=== PATIENT | female | born 1935 | race African-American/Black ===

== ENCOUNTER 2016-10-27 11:49 | Day surgery (SDC) | payer OTHER ==
[2016-10-27 13:56] VITALS: PULSE 76
[2016-10-27 14:08] VITALS: BP 149/83; TEMP 98.2
--- NOTE | 2016-10-29 11:15 | PATH ---
Surgical Pathology Report Patient Name: IZABEL JIMENEZ [facility]. Rec. #: [id number] /Age/Gender: 1935 (Age: 81) / F Account: [id number] Location: [facility]-ENDOSCOPY Taken: 10/27/2016 Received: 10/27/2016 Reported: 10/29/2016 Physicians: Josie Fleming M.D. Specimen(s) Received A: BX DUODENAL BULB B: BX GE JUNCTION Clinical History Dysphagia Inflammation Final Diagnosis A. DUODENUM, BULB, BIOPSY: SMALL INTESTINAL MUCOSA WITH EXTRAVASATION OF RED BLOOD CELLS WITHIN LAMINA PROPRIA. NO INFLAMMATORY INFILTRATES IDENTIFIED. NO HISTOLOGIC EVIDENCE OF GLUTEN SENSITIVE ENTEROPATHY (CELIAC SPRUE) IDENTIFIED. B. GE JUNCTION, BIOPSY: GASTRIC TYPE MUCOSA WITH CHRONIC INFLAMMATION, AND SQUAMOUS MUCOSA WITH PAPILLOMATOSIS SUGGESTIVE OF REFLUX ESOPHAGITIS. NO INTESTINAL METAPLASIA IDENTIFIED (NO PINEDA'S IDENTIFIED). Electronically Signed Derek Ac M.D. Gross Description A. Received in formalin, labeled "duodenal bulb" is a sampson, irregular portion of soft tissue measuring 0.4 cm. in greatest dimension. The specimen is submitted in toto in one cassette. B. Received in formalin, labeled "GE junction" are 2 sampson, irregular portions of soft tissue measuring 0.1 and 0.5 cm. in greatest dimension. The specimens are submitted in toto in one cassette. 10/28/2016 saudi10/28/2016
== END 2016-10-27 14:12 ==
LOC: FASU-ENDO 11:49
PROVIDERS: ATTEND Internal Medicine Gastroenterology
PROC: 0DH63UZ Insertion of Feeding Device into Stomach, Percutaneous Approach (ICD-10-PCS; principal; 2016-10-27 12:24)
DX: K94.23 Gastrostomy malfunction (principal)
CPT/HCPCS: 88305-TC

== ENCOUNTER 2018-04-12 11:26 | Day surgery (SDC) | payer OTHER ==
[2018-04-10 10:00] VITALS: BMI 25.0
[2018-04-12] MEDS ORDERED: LIDOCAINE HCL/PF 2% SDV 5ML VIAL ONE (11:58)
[2018-04-12] MEDS ORDERED: PROPOFOL 20 ML ONE ×2 (13:23→14:08)
[2018-04-12 18:33] VITALS: TEMP 98
[2018-04-12 18:44] VITALS: BP 171/79
[2018-04-12 18:56] VITALS: PULSE 95
--- NOTE | 2018-04-14 17:10 | PATH ---
Surgical Pathology Report Patient Name: IZABEL JIMENEZ [facility]. Rec. #: [id number] /Age/Gender: 1935 (Age: 83) / F Account: [id number] Location: [facility] Taken: 04/12/2018 Received: 04/12/2018 Reported: 04/14/2018 Physicians: Josie Fleming M.D. Specimen(s) Received A: BX ANTRUM B: PEG BUMPER Clinical History Malfunction digits, which ing PEG Final Diagnosis A. ANTRUM, BIOPSY: MILD CHRONIC GASTRITIS. IMMUNOSTAIN IS NEGATIVE FOR H. PYLORI ORGANISMS. B. PEG BUMPER, REMOVAL: PEG BUMPER, DESCRIBED (GROSS EXAMINATION ONLY). Electronically Signed Sakshi Bear M.D. Gross Description A. Received in formalin, labeled "antrum" is a sampson, irregular portion of soft tissue measuring 0.4 cm. in greatest dimension. The specimen is submitted in toto in one cassette. B. Received fresh labeled "PEG bumper," is a 2.5 cm in diameter brown, circular, rubbery device with an attached 3.2 cm in length portion of tubing. No soft tissue is present. No sections are submitted, gross only. 04/13/2018 saudi04/13/2018
== END 2018-04-12 17:00 | disposition home or self-care (01) ==
LOC: FASU-ENDO 11:26
PROVIDERS: ATTEND Internal Medicine Gastroenterology
PROC: 0DP64UZ Removal of Feeding Device from Stomach, Percutaneous Endoscopic Approach (ICD-10-PCS; 2018-04-12)
PROC: 0DH63UZ Insertion of Feeding Device into Stomach, Percutaneous Approach (ICD-10-PCS; principal; 2018-04-12 13:39)
PROC: 0DB68ZX Excision of Stomach, Via Natural or Artificial Opening Endoscopic, Diagnostic (ICD-10-PCS; 2018-04-12 13:39)
DX: Z43.1 Encounter for attention to gastrostomy (principal); K29.50 Unspecified chronic gastritis without bleeding
CPT/HCPCS: 88300-TC; 88305-TC; 88342-TC